=== PATIENT | male | born 1965 | race Caucasian/White ===

== ENCOUNTER 2017-02-14 06:43 | Day surgery (SDC) | payer MEDICAID, OTHER ==
[2017-02-14 07:44] VITALS: TEMP 97.5
--- NOTE | 2017-02-14 08:00 | PDANEPAE ---
ANE History of Present Illness Heartburn ANE Past Medical History - Cardiovascular History Hx Hypertension: No Hx Arrhythmias: No Hx Chest Pain: No Hx Coronary Artery / Peripheral Vascular Disease: No Hx CHF / Valvular Disease: No Hx Palpitations: No - Pulmonary History Hx COPD: No Hx Asthma/Reactive Airway Disease: No Hx Recent Upper Respiratory Infection: No Hx Oxygen in Use at Home: No Hx Sleep Apnea: No Sleep Apnea Screening Result - Last Documented: Negative Pulmonary History Comment: smoked cigs 35 yrs- trying to quit. Smokes 1 cig daily. - Neurologic History Hx Cerebrovascular Accident: No Hx Seizures: No Hx Dementia: No - Endocrine History Hx Diabetes: No - Renal History Hx Renal Disorders: No Renal History Comment: urgency - Liver History Hx Hepatic Disorders: No - Neurological & Psychiatric Hx Hx Neurological and Psychiatric Disorders: No Neurological / Psychiatric History Comment: occ back and neck pain - Cancer History Hx Cancer: No - Congenital Disorder History Hx Congenital Disorders: No - GI History Hx Gastrointestinal Disorders: Yes Gastrointestinal History Comment: nausea, GERD - Other Health History Other Health History: skin: states " 1 inch lesion back of L leg" - Chronic Pain History Chronic Pain: No - Surgical History Prior Surgeries: tonsillectomy-child ANE Review of Systems Review of Systems: - Exercise capacity METS (RN): 5 METS ANE Patient History - Allergies Allergies/Adverse Reactions: No Known Allergies Allergy (Unverified 02/01/17 16:18) - Home Medications Home Medications: Lunesta 02/01/17 [Last Taken Unknown] Wellbutrin Sr 02/01/17 [Last Taken Unknown] Zoloft 50mg (*) 02/01/17 [Last Taken Unknown] - NPO status NPO Since - Liquids (Date): 02/13/17 NPO Since - Solids (Date): 02/13/17 - Smoking Hx Smoking Status: Light smoker ANE Labs/Vital Signs - Vital Signs Blood Pressure: 115/77 Heart Rate: 65 Respiratory Rate: 16 O2 Sat (%): 94 Height: 167.64 cm Weight: 77.111 kg ANE Physical Exam - Airway Neck exam: FROM Mallampati Score: Class 1 - Pulmonary Pulmonary: no respiratory distress - Cardiovascular Cardiovascular: regular rate and rhythym - ASA Status ASA Status: II ANE Anesthesia Plan Anesthesia Plan: MAC Total IV Anesthesia: Yes
--- NOTE | 2017-02-14 08:01 | PDGENHP ---
History & Physical Chief Complaint: cc screen, abdo pain History of Present Illness: cc screen. intermittant abdo pain Pertinent Past, Social, Family History: no cc. hx smoking quit x years Relevant Physical Exam: A+Ox3. CTA. S1S2, RRR. +BS , soft, nt Cardiorespiratory Assessment: class 2
[2017-02-14] MEDS ORDERED: PROPOFOL 200 MG/20 ML VIAL ONE ×3 (08:05→08:33)
[2017-02-14] MEDS ORDERED: LIDOCAINE 2% 5 ML SDV ONE (08:05)
[2017-02-14] MEDS ORDERED: NALOXONE HCL 0.4 MG/ML INJ IVP PRN (08:09)
--- NOTE | 2017-02-14 08:22 | GIREPORT ---
[facility] Surgical Services - Endoscopy Department Patient Name: Michelet Savage Procedure Date: 02/14/2017 7:57 AM Patient Type: Outpatient Attending MD/ ER Physician: Carlos Manuel Weinberg Procedure: Upper GI endoscopy Indications: Abdominal pain Providers: Junior Thompson MD Referring MD: Charlette Hardy [facility] Medicines: Sedation Required Anesthesia Staff Assistance Complications: No immediate complications. Estimated blood loss: Minimal. Description of Procedure: After obtaining informed consent, the endoscope was passed under direct vision. Throughout the procedure, the patient's blood pressure, pulse, and oxygen saturations were monitored continuously. The Endoscope was intro duced through the mouth, and advanced to the third part of duodenum. The uppe r GI endoscopy was accomplished without difficulty. The patient tolerated th e procedure well. Findings: The examined esophagus was normal. Scattered mild inflammation characterized by erythema, friability and granularity was found on the greater curvature of the gastric body and in the gastric antrum. Biopsies were taken with a cold forceps for histolo gy. Estimated blood loss was minimal. The examined duodenum was normal. The exam was otherwise without abnormality. Estimated Blood Loss: Estimated blood loss was minimal. Post Op Diagnosis: - Normal esophagus. - Gastritis. Biopsied. - Normal examined duodenum. - The examination was otherwise normal. Recommendation: - Await pathology results. - My office will call with the pathology result with 5-7 days. If you h ave not heard from my office by 12-14, do not assume the pathology is rohit l, please call [phone] to get the pathology reults. - Use Protonix (pantoprazole) 40 mg PO daily for 4 weeks. Take 30-60 mi nutes before breakfast - Perform a colonoscopy today. - Return to primary care physician as previously scheduled. - Thank you for allowing me to help in your patient's care. Do not hesi beverly to call with any questions. Attending Participation: I personally performed the entire procedure. Jay Pacheco M.D Junior Thompson MD 02/14/2017 8:21:37 AM This report has been signed electronicallyMathew MD Jay Number of Addenda: 0 Note Initiated On: 02/14/2017 7:57 AM [email or web address]
[2017-02-14] MEDS ORDERED: ONDANSETRON 4 MG/2 ML VIAL IVP PRN (08:29)
[2017-02-14] MEDS ORDERED: fentaNYL 100 MCG/2 ML INJ IVP PRN (08:29)
--- NOTE | 2017-02-14 08:40 | GIREPORT ---
[facility] Surgical Services - Endoscopy Department Patient Name: Michelet Savage Procedure Date: 02/14/2017 8:18 AM Patient Type: Outpatient Attending MD/ ER Physician: Carlos Manuel Weinberg Procedure: Colonoscopy Indications: Screening for colorectal malignant neoplasm Providers: Junior Thompson MD Referring MD: Charlette FARRELL, [facility] Medicines: Sedation Administered by an Anesthesia Professional Complications: No immediate complications. Description of Procedure: After obtaining informed consent, the scope was passed under direct vis ion. Throughout the procedure, the patient's blood pressure, pulse, and oxyg en saturations were monitored continuously. The Colonoscope with irrigatio n channel was introduced through the anus and advanced to the terminal il eum, with identification of the appendiceal orifice and IC valve. The colono scopy was performed without difficulty. The patient tolerated the procedure w ell. The quality of the bowel preparation was good. Findings: The digital rectal exam was normal. The terminal ileum appeared normal. The entire examined colon appeared normal on direct and retroflexion vi ews. Estimated Blood Loss: Estimated blood loss: none. Post Op Diagnosis: - The examined portion of the ileum was normal. - The entire examined colon is normal on direct and retroflexion views. - No specimens collected. Recommendation: - Repeat colonoscopy in 10 years for screening purposes. - Resume previous diet. - Patient has a contact number available for emergencies. The signs and symptoms of potential delayed complications were discussed with the pat ient. Return to normal activities tomorrow. Written discharge instructions we re provided to the patient. - Continue present medications. - Discharge patient to home (ambulatory). - Return to primary care physician as previously scheduled. - See EGD for other recommendations - Thank you for allowing me to help in your patient's care. Do not hesi beverly to call with any questions. Attending Participation: I personally performed the entire procedure. Jay Pacheco M.D Junior Thompson MD 02/14/2017 8:40:24 AM This report has been signed electronicallyMathew MD Jay Number of Addenda: 0 Note Initiated On: 02/14/2017 8:18 AM Total Procedure Duration Time 0 hours 12 minutes 30 seconds [email or web address]}
--- NOTE | 2017-02-14 08:49 | POSTANESTH ---
Post Anesthetic Evaluation Cardiovascular Status: Normal, Stable Respiratory Status: Normal, Stable Level of Consciousness/Mental Status: Alert and Oriented, Mildly Sleepy, Arousable Pain Control: Adequate, Prn Tx Ordered Nausea/Vomiting Control: Adequate, Prn Tx Ordered Complications Possibly Related to Anesthesia: None Noted
--- NOTE | 2017-02-14 09:05 | POSTOPPROG ---
Post Op Note Date of Operation: 02/14/17 Surgeon: Boston Thompson Anesthesiologist: Sheyla Anesthesia: Other (Specify) (iv general) Pre-op Diagnosis: abdo pain, colon cancer Post-op Diagnosis: gastritis, nml colon Indication: abdo pain, cc screen Procedure: egd and bx, colonoscopy Findings: gastritis, o/w nml Inf/Abcess present in the surg proc area at time of surgery?: No EBL: Minimal (few ml) Total fluids administered: 300ml LR Complications: none immediate
[2017-02-14 09:43] VITALS: PULSE 59; RESP 14; O2SAT 95
[2017-02-14 10:24] VITALS: BP 109/75
== END 2017-02-14 10:31 | disposition home or self-care (01) ==
LOC: FSGY 06:43
PROVIDERS: ATTEND Internal Medicine Gastroenterology
DX: Z12.11 Encounter for screening for malignant neoplasm of colon (principal); R11.0 Nausea; K21.9 Gastro-esophageal reflux disease without esophagitis; K29.60 Other gastritis without bleeding; B96.81 Helicobacter pylori [H. pylori] as the cause of diseases classified elsewhere
CPT/HCPCS: J2704

== ENCOUNTER 2017-10-14 14:50 | Emergency (ER) | payer MEDICAID ==
[2017-10-14] MEDS ORDERED: TDAP ADULT 0.5 ML INJ (BOOSTRIX) IM ONE (15:23)
--- NOTE | 2017-10-14 15:23 | EDPHY ---
General - History Smoking Status: Current every day smoker Time Seen by Provider: 10/14/17 15:16 Narrative: CHIEF COMPLAINT: "I shot up some meth" and arm pain HISTORY OF PRESENT ILLNESS: Patient complains of right arm pain of 1 week after "I shot up some meth and coke." He reports the attempted intravenous injection 1 week ago. He says that failed and was injected into the skin. No complaints until 2-3 days after this. He then developed some redness and pain. It is in the right anterior arm , distal portion of the brachium just above the AC. He has increasing pain, redness and questionable fever at this time. No difficulty bending the elbow but it is very painful the anterior portion when doing so. No numbness or tingling. No weakness. No other associated complaints or modifying factors. Questionable tetanus status REVIEW OF SYSTEMS: 10 systems were reviewed and negative with the exception of the elements mentioned in the history of present illness. PCP: [facility] SPECIALISTS: None PAST MEDICAL HISTORY: Denies any medical diagnoses PAST SURGICAL HISTORY: No recent surgical history SOCIAL HISTORY: Admits to tobacco use. Occasional illicit substance use. FAMILY HISTORY: Noncontributory EXAMINATION: General Appearance: Alert, no distress Head: normocephalic, atraumatic Eyes: Pupils equal and round, no conjunctival pallor or injection Respiratory: No retractions or distress. Cardiovascular: Regular rate. Symmetric radial pulses 2+. Good signs of perfusion to the right upper extremity. Neurological: A&O, nonfocal. Light sensory symmetric in the upper extremities. No wrist drop. Excellent strength of the right interossei per Skin: Warm and dry. There is a 3 cm x 2.5 cm area of abscess on the anterior arm, just above the right AC. There is fluctuance superiorly. There is minimal surrounding cellulitis. Extremities: Moderate tenderness in the area of the right arm abscess. There is no tenderness of the posterior right elbow. Range of motion of the right upper extremity is symmetric to the left. Compartments are soft in the right upper extremity. There is no evidence of septic joint or intra-articular involvement of the right arm abscess. Psychiatric: Mood and affect normal DIFFERENTIAL DIAGNOSES: Including but not limited to abscess, cellulitis, septic joint MDM: 3:15 p.m. Abscess to the right arm that is superficial and just above the antecubital space. There is no evidence of septic joint. He has full range of motion of the elbow with no tenderness of the posterior aspect. His vital signs are within normal limits. He is neuro intact distally. I have anesthetize the area and proceed with incision and drainage. 3:50 p.m. Right arm abscess that was superficial has been incised and drained. This was tolerated well with excellent return. I did not place any packing. He remains neuro intact distal to the abscess status post drainage. A dressing has been placed. We discussed antibiotics, Bactrim and Keflex. We discussed returning here in 48 hr for wound check. We discussed returning sooner for any increasing pain or redness, warmth, fever, difficulty bending the elbow or intractable pain. He is comfortable this plan. Discharged home stable condition PROCEDURE: Incision and Drainage Consent: Verbal Location: Right anterior, inferior brachium Length: 2.5 x 3 cm Complexity: Complex Anesthesia: Local. 1% lidocaine with epinephrine, 10 mL Procedure description: After good anesthesia and time-out, the right arm AC was prepped with Betadine. He was draped in common sterile fashion. A 15. Blade was used to make a 1.5 cm laceration along lingers lines. This was blunt dissected down to the area of abscess. I was able to express 12 mL of purulent and serous fluid. Minimal blood loss. Tolerated well. Neuro intact distally. Expressed: No packing was placed 12 mL, purulent serous Wound care: Routine. Follow-up: 48 hr SUPERVISION: This patient was independently evaluated without direct involvement of or examination by the attending physician. CONSULTATION: None (Dariel Martell) Discussion: The patient was evaluated and managed by the Physician Vacuum Cleaner Repair Person. My co- signature indicates that I have reviewed this chart and I agree with the findings and plan of care as documented. I am the secondary supervising physician. (Mary Carver) - Objective Vital Signs: Initial Vital Signs Temperature (C) 36.7 C 10/14/17 14:54 Heart Rate 103 H 10/14/17 14:54 Respiratory Rate 16 10/14/17 14:54 Blood Pressure 126/81 H 10/14/17 14:54 O2 Sat (%) 96 10/14/17 14:54 O2 Delivery Mode Room Air Allergies/Adverse Reactions: No Known Allergies Allergy (Unverified 10/14/17 14:53) Home Medications: Medication Instructions Recorded Cephalexin [Keflex (*)] 500 mg PO QID #40 cap 10/14/17 Naproxen [Naprosyn] 500 mg PO BID #20 tablet 10/14/17 Sulfamethox/Tmp 800/160 mg 2 tab PO BID 10 Days tab 10/14/17 [Bactrim Ds] Medications Given: Discontinued Medications Diphtheria/Tetanus/Acell Pertussis (Boostrix) 0.5 ml IM .ONCE ONE Stop: 10/14/17 15:24 Last Admin: 10/14/17 15:34 Dose: 0.5 ml Oxycodone/Acetaminophen (Percocet 5/325) 1 tab PO EDNOW ONE Stop: 10/14/17 15:30 Last Admin: 10/14/17 15:34 Dose: 1 tab Departure - Departure Disposition: Home, Routine, Self-Care Clinical Impression: Abscess of arm, right Condition: Good Instructions: Abscess (ED) Additional Instructions: 1. Antibiotics as prescribed to completion 2. Return here in 48 hr for wound check 3. Return here sooner for any worsening pain, increasing redness, difficulty bending the elbow, fever, complaints distal to the abscess Referrals: Physician,Emergency Dept, [Medical Doctor] - As per Instructions [facility],. [Clinic] - As per Instructions Prescriptions: Cephalexin [Keflex (*)] 500 mg PO QID #40 cap Naproxen [Naprosyn] 500 mg PO BID #20 tablet Sulfamethox/Tmp 800/160 mg [Bactrim Ds] 2 tab PO BID 10 Days tab
[2017-10-14] MEDS ORDERED: OXYCODONE/APAP 5/325 TAB PO ONE (15:29)
[2017-10-14 16:13] VITALS: BP 120/78
== END 2017-10-14 16:21 | disposition home or self-care (01) ==
PROC: 0H9BXZZ Drainage of Right Upper Arm Skin, External Approach (ICD-10-PCS; principal; 2017-10-14)
DX: L02.413 Cutaneous abscess of right upper limb (principal); F17.210 Nicotine dependence, cigarettes, uncomplicated; F14.90 Cocaine use, unspecified, uncomplicated; F15.90 Other stimulant use, unspecified, uncomplicated; Z23 Encounter for immunization

== ENCOUNTER 2018-02-27 14:08 | Emergency (ER) | payer MEDICAID ==
--- NOTE | 2018-02-27 15:10 | EDPHY ---
HPI/HX/ROS/PE/MDM Narrative: CHIEF COMPLAINT: Cough HISTORY OF PRESENT ILLNESS: This patient is a homeless 52 year old male complaining that he has been "coughing up green sludge for weeks". He states this began like his typical sinus infections and endorses facial pain. Now, he has a persistent productive cough. He endorses discomfort between his shoulder blades. He complains of subjective fever and nausea today only. He endorses shortness of breath. The patient admits to frequent cigarette use and methamphetamine use. He states he used heroin for the first time last night to help him sleep. He states that the woman who provided the heroin also provided an albuterol inhaler to help his cough, but he continues to feel poorly. No chills, chest pain, palpitations, vomiting, diarrhea, urinary complaints, headache, lightheadedness. REVIEW OF SYSTEMS: A comprehensive 10 system review of systems is otherwise negative aside from elements mentioned in the history of present illness and medical decision making. PAST MEDICAL HISTORY: Depression, bipolar. SOCIAL HISTORY: Patient is currently homeless. Endorses frequent tobacco and methamphetamine use. Occasional alcohol use. PCP Charlette Hardy VITAL SIGNS: Reviewed by me. Afebrile. Sats 92% GENERAL: Well-developed, well-nourished, resting comfortably, sounds congested. Pleaseant, occasional cough. HEENT: Atraumatic. Eyes: No icterus, no injection. TTP across maxillary and frontal sinus. Mouth: moist mucous membranes. No erythema or lesions. Neck: supple with no adenopathy. LUNGS: Rhonchi in posterior right upper lobe. Wheezy cough. CARDIAC: Mild tachycardia rate and rhythm, no rubs, murmurs or gallops. ABDOMEN: Soft, nontender, nondistended, bowel sounds normal. BACK: No CVA tenderness. EXTREMITIES: No trauma. No edema. Range of motion is normal throughout. NEURO: Alert and oriented, grossly nonfocal. SKIN: Warm and dry, no rash. PSYCHIATRIC: Normal mentation, no agitation. Portions of this note were transcribed by a caregivers non medical. I personally performed a history, physical exam, medical decision making, and confirmed accuracy of information the transcribed note. ED Course: 52 year old male presents with persistent productive cough. On auscultation, the patient has rhonchi in posterior right upper lobe. Wheezy cough. Plan for chest x-ray, EKG. Plan to administer DuoNeb for symptom relief. Evidence of bilateral lower lobe pneumonia. Plan to administer 100mg PO Doxycycline. Plan to discharge in good condition with prescription for doxycycline for his sinus infection and pneumonia. Albuterol MDI prepack provided as well. He will follow up with his primary care provider. Follow up and return precautions discussed. He is comfortable with this plan. MDM: Differential diagnosis for the patient's cough was considered including but not limited to viral versus bacterial bronchitis, asthma, COPD, pulmonary emboli, upper respiratory infection, lower respiratory infection, and bronchospasm. - Data Points Imaging Results: Impression: 1. Bilateral lower lobe pneumonia. 2. Recommend follow-up until clear. Findings and recommendations discussed with Emergency Department physician, Mary Carver MD at 16:18 hour, 02/27/2018. Final report concurs with initial preliminary interpretation. Dictated By: Navin Rincon Imaging: I viewed and interpreted images myself Medications Given: Discontinued Medications Albuterol (Proventil Neb) 3 ml IH EDNOW ONE Stop: 02/27/18 15:28 Last Admin: 02/27/18 15:32 Dose: 3 ml Albuterol Sulfate (Proventil Inh Prepack) 1 mdi TAKEHOME EDNOW ONE Stop: 02/27/18 15:40 Last Admin: 02/27/18 15:43 Dose: 1 mdi Doxycycline Hyclate (Doxycycline Hyclate) 100 mg PO EDNOW ONE PRN Reason: Protocol Stop: 02/27/18 15:39 Last Admin: 02/27/18 15:43 Dose: 100 mg Doxycycline Hyclate (Vibramycin 100 Mg Prepack#2) 1 btl TAKEHOME EDNOW ONE Stop: 02/27/18 15:40 Last Admin: 02/27/18 15:44 Dose: 1 btl General Time Seen by Provider: 02/27/18 14:55 Initial Vital Signs: Initial Vital Signs Temperature (C) 36.7 C 02/27/18 14:11 Heart Rate 105 H 02/27/18 14:11 Respiratory Rate 16 02/27/18 14:11 Blood Pressure 99/59 L 02/27/18 14:11 O2 Sat (%) 92 02/27/18 14:11 O2 Delivery Mode Room Air Allergies/Adverse Reactions: No Known Allergies Allergy (Unverified 02/27/18 14:11) Home Medications: Medication Instructions Recorded Cephalexin [Keflex (*)] 500 mg PO QID #40 cap 10/14/17 Naproxen [Naprosyn] 500 mg PO BID #20 tablet 10/14/17 Sulfamethox/Tmp 800/160 mg 2 tab PO BID 10 Days tab 10/14/17 [Bactrim Ds] Doxycycline Hyclate 100 mg PO BID 10 Days #20 capsule 02/27/18 Departure - Departure Disposition: Home, Routine, Self-Care Clinical Impression: Acute bronchitis Qualifiers: Bronchitis organism: other organism Qualified Code(s): J20.8 - Acute bronchitis due to other specified organisms Acute sinusitis Qualifiers: Sinusitis location: unspecified location Recurrence: not specified as recurrent Qualified Code(s): J01.90 - Acute sinusitis, unspecified Pneumonia Qualifiers: Pneumonia type: due to unspecified organism Laterality: bilateral Lung location : lower lobe of lung Qualified Code(s): J18.1 - Lobar pneumonia, unspecified organism Condition: Good Instructions: Sinusitis (ED), Acute Bronchitis (ED), Bronchospasm (ED) Additional Instructions: Please take antibiotic as directed. It will help with both your sinus infection as well as your lungs. Please use the albuterol meter dose inhaler as instructed. 2-4 puffs every 4-6 hours as needed for shortness of breath and cough. You need to obtain an [id number] decongestant to help with your sinus infection. You should also obtain Flonase nasal spray, which also is available over-the- counter. Please use this as directed. Drink plenty of fluids and get plenty of rest. Referrals: Charlette Hardy, PAC [Primary Care Provider] - As per Instructions Prescriptions: Doxycycline Hyclate 100 mg PO BID 10 Days #20 capsule Report Scribed for: Mary Carver Report Scribed by: Dorene Joshi Date of Report: 02/27/18 Time of Report: 15:51
[2018-02-27] MEDS ORDERED: ALBUTEROL 3 ML DEYVIAL IH ONE (15:27)
[2018-02-27] MEDS ORDERED: DOXYCYCLINE HYCLATE 100 MG CAP/TAB PO ONE (15:38)
[2018-02-27] MEDS ORDERED: ALBUTEROL INH PREPACK MDI TAKEHOME ONE (15:39)
[2018-02-27] MEDS ORDERED: DOXYCYCLINE 100 MG PREPACK#2 BTL TAKEHOME ONE (15:39)
[2018-02-27 16:23] VITALS: BP 108/67
--- NOTE | 2018-02-27 19:31 | ASMTCMCOM ---
CM Note CM Note Notes: Pt presented to the ED for a cough. CM requested to speak to patient and his two friends re:pt's homelessness situation and options for senior care tonight. Spoke w/pt and his friends at bedside. Pt very restless & hyperverbal but pleasant. Pt's friends were very pleasant and wanting to help the pt if possible. Pt states he has been staying at the [facility] ever since he missed an appointment w/his Forge Shop Supervisor at [facility]. CM let the pt know that [facility] was open tonight and that would be his only option for senior care tonight. Pt discharged to the [facility] w/instructions to followup with [facility] (pt states "I go there all the time") and to followup w/his CM at [facility]. Pt agreeable. Friends appreciative and understanding of limited options for pt and that he needs to follow up w/CM and their process. CM available for further assistance if needed. Date Signed: 02/27/2018 07:30 PM Electronically Signed By:Doris Oconnor RN
--- NOTE | 2018-02-27 20:47 | CPEKG ---
Test Reason : OPEN Blood Pressure : / mmHG Vent. Rate : 098 BPM Atrial Rate : 099 BPM P-R Int : 163 ms QRS Dur : 100 ms QT Int : 360 ms P-R-T Axes : 073 039 056 degrees QTc Int : 460 ms Sinus rhythm Confirmed by Mary Carver ([id number]) on 02/27/2018 8:46:54 PM Referred By: Confirmed By:Mary Carver
== END 2018-02-27 16:22 | disposition home or self-care (01) ==
DX: J18.1 Lobar pneumonia, unspecified organism (principal); J20.9 Acute bronchitis, unspecified; J01.90 Acute sinusitis, unspecified; F32.9 Major depressive disorder, single episode, unspecified; Z59.0 Homelessness
CPT/HCPCS: J7613

== ENCOUNTER 2018-06-21 22:45 | Emergency (ER) | payer MEDICAID ==
[2018-06-21 22:51] VITALS: BP 150/96
--- NOTE | 2018-06-21 22:58 | EDPHY ---
H & P Stated Complaint: right side lower molar Time Seen by Provider: 06/21/18 22:53 HPI/ROS: HPI: This is a 52-year-old male who presents with Chief Complaint: Right-sided lower molar pain Location: Right-sided lower molar Quality: Pain Duration: 1 month Signs and Symptoms: no fever, no nausea, no vomiting, no photophobia, no noise sensitivity, no neck stiffness, no ear pain, no tinnitus, no nasal congestion, no sinus pressure, no weakness, no radiation, no aura, no difficulty swallowing , no difficulty talking Timing: Worse over the last 2 days Severity: 10/17 Context: Patient has a history of depression, bipolar disorder, tobacco use presents with complaints of right sided lower molar pain over the last 1 month. He reports that he has not followed up with his dentist as "I should." Eating the orange jelly candy "makes it feel better." Denies any fever, difficulty swallowing, difficulty talking. Modifying Factors: None Comment: ROS: A comprehensive 10 system review of systems is otherwise negative aside from elements mentioned in the history of present illness. MEDICAL/SURGICAL/SOCIAL HISTORY: Medical history: Depression, bipolar disorder Surgical history: Denies Social history: Homeless. Current every day smoker. Family history noncontributory. CONSTITUTIONAL: Well-developed, well-nourished adult white male, awake and alert, no obvious distress HEENT: Atraumatic and normocephalic, PERRL, EOMI. Nares patent; no rhinorrhea; no nasal mucosal edema. Tympanic membranes clear. Oropharynx clear, molar number 47 is cracked with black and color but no gingival erythema, no gingival swelling, no facial swelling. No malocclusion. no exudate and moist pink mucosa. Airway patent. No lymphadenopathy. No meningismus. Cardiovascular: Normal S1/S2, regular rate, regular rhythm, without murmur rub or gallop. PULMONARY/CHEST: Symmetrical and nontender. Clear to auscultation bilaterally. Good air movement. No accessory muscle usage. ABDOMEN: Soft, nondistended, nontender, no rebound, no guarding, no peritoneal signs, no masses or organomegaly. No CVAT. EXTREMITIES: 2/2 pulses, strength 5/5, no deformities, no clubbing, no cyanosis or edema. NEUROLOGICAL: no focal neuro deficits. GCS 15. Speech fluent. SKIN: Warm and dry, no erythema. no rash. Good capillary refill. Source: Patient Exam Limitations: No limitations - Personal History Current Tetanus Diphtheria and Acellular Pertussis (TDAP): Yes - Medical/Surgical History Hx Asthma: No Hx Chronic Respiratory Disease: No Hx Diabetes: No Hx Cardiac Disease: No Hx Renal Disease: No Hx Cirrhosis: No Hx Alcoholism: Yes Hx HIV/AIDS: No Hx Splenectomy or Spleen Trauma: No Other PMH: depression, bipolar - Social History Smoking Status: Current every day smoker Constitutional: Initial Vital Signs Temperature (C) 36.5 C 06/21/18 22:46 Heart Rate 90 06/21/18 22:46 Respiratory Rate 16 06/21/18 22:46 Blood Pressure 150/96 H 06/21/18 22:46 O2 Sat (%) 97 06/21/18 22:46 O2 Delivery Mode Room Air Allergies/Adverse Reactions: No Known Allergies Allergy (Unverified 02/27/18 14:11) Home Medications: Medication Instructions Recorded Amoxicillin Trihydrate [Amoxil] 500 mg PO TID 7 Days cap 06/21/18 Medical Decision Making Procedures: Procedure: Dental block. After verbal informed consent was obtained explaining the risks including but not limited to infection and bleeding, a dental block was performed on the tooth #47. The patient was prepped and draped in the usual sterile fashion. The joint was anesthetized with 3 mL 1% lidocaine without epinephrine at the buccal mucosa. Patient reports complete pain relief. There were no complications. The procedure was performed by myself. ED Course/Re-evaluation: Local dental block performed with complete relief of pain. Given amoxicillin prepack and prescription for same. Dental aide number given for follow-up. No signs of facial cellulitis, periapical abscess. This patient was seen under the supervision of my secondary supervising physician. I evaluated and cared for this patient with attending. Differential Diagnosis: Differential diagnosis includes but is not limited to dental cavity, cracked tooth, root injury, abscess. - Data Points Medications Given: Discontinued Medications Amoxicillin (Amoxil Chewable 250 Mg Prepack#4) 1 btl TAKEHOME EDNOW ONE PRN Reason: Protocol Stop: 06/21/18 23:00 Last Admin: 06/21/18 23:08 Dose: 1 btl Amoxicillin (Amoxil Chewable 250 Mg Prepack#4) 1 btl TAKEHOME EDNOW ONE PRN Reason: Protocol Stop: 06/21/18 23:00 Last Admin: 06/21/18 23:01 Dose: Not Given Departure - Departure Disposition: Home, Routine, Self-Care Clinical Impression: Dental cavity, Odontalgia Condition: Good Instructions: Amoxicillin (By mouth), Cavity Preventive (For the teeth or gums) , Toothache (ED) Additional Instructions: Follow up with a dentist in the next week. Eat a soft diet until pain free. Swish and spit after every meal and at bedtime with dilute hydrogen peroxide; 50 /50 mixture of warm water and Hydrogen peroxide x 5 days. Take Tylenol 650 mg every 4 hr and/or ibuprofen 600 mg every 8 hr as needed for pain. Take antibiotic as directed. Do not skip a dose. Follow-Up: Please follow-up as noted above. Follow-up sooner if your condition worsens or if you develop any new problems. Call as soon as possible for an appointment. Be clear when you call for an appointment that this is an Emergency Department follow-up. Contact the Emergency Department if you have trouble arranging follow-up care. Our referrals are not based on your insurance network. When time allows, contact your insurance carrier to verify the referral physician is in your plan. If not, get a referral for an in-network systems operator. Referrals: Dental Aid [Outside] - As per Instructions Prescriptions: Amoxicillin Trihydrate [Amoxil] 500 mg PO TID 7 Days cap
[2018-06-21] MEDS ORDERED: AMOXICILLIN 250 MG PREPACK#4 BTL TAKEHOME ONE ×2 (22:59)
== END 2018-06-21 23:09 | disposition home or self-care (01) ==
PROC: 3E0X3BZ Introduction of Anesthetic Agent into Cranial Nerves, Percutaneous Approach (ICD-10-PCS; principal; 2018-06-21)
DX: K02.9 Dental caries, unspecified (principal); K08.89 Other specified disorders of teeth and supporting structures; F32.9 Major depressive disorder, single episode, unspecified; F17.200 Nicotine dependence, unspecified, uncomplicated

== ENCOUNTER 2018-06-22 04:21 | Emergency (ER) | payer MEDICAID ==
[2018-06-22 04:27] VITALS: BP 140/95
--- NOTE | 2018-06-22 04:40 | EDPHY ---
H & P Stated Complaint: dental pain Time Seen by Provider: 06/22/18 04:37 HPI/ROS: Chief Complaint: Dental pain HPI: 52-year-old male presenting with 2 days of worsening right lower molar dental pain. He was seen here fiber 6 hr ago and had a dental block with good relief but it has worn off. He was given antibiotics. Does have a history of methamphetamine abuse. No fevers or chills. No nausea or vomiting. Mild headache. ROS: 10 systems were reviewed and were negative except those elements noted in the HPI. PMH: Denies Social History: Positive smoking, no alcohol, positive methamphetamine use Family History: non-contributory Physical Exam: General: Awake, alert, no acute distress Mouth: Patient has very poor dentition. Right lower molar is broken and has significant decay. There is no erythema. There is no fluctuance. There is no pointing. No submandibular swelling Neck: No lymphadenopathy - Personal History Current Tetanus/Diphtheria Vaccine: Yes Current Tetanus Diphtheria and Acellular Pertussis (TDAP): Yes - Medical/Surgical History Hx Asthma: No Hx Chronic Respiratory Disease: No Hx Diabetes: No Hx Cardiac Disease: No Hx Renal Disease: No Hx Cirrhosis: No Hx Alcoholism: Yes Hx HIV/AIDS: No Hx Splenectomy or Spleen Trauma: No Other PMH: depression, bipolar - Social History Smoking Status: Current every day smoker Constitutional: Initial Vital Signs Temperature (C) 36.5 C 06/22/18 04:23 Heart Rate 82 06/22/18 04:23 Respiratory Rate 19 06/22/18 04:23 Blood Pressure 140/95 H 06/22/18 04:23 O2 Sat (%) 97 06/22/18 04:23 O2 Delivery Mode Room Air Allergies/Adverse Reactions: No Known Allergies Allergy (Unverified 02/27/18 14:11) Home Medications: Medication Instructions Recorded Amoxicillin Trihydrate [Amoxil] 500 mg PO TID 7 Days cap 06/21/18 Medical Decision Making Procedures: Procedure: Regional anesthesia. A right inferior alveolar dental block was performed for tooth pain. The block was performed with Marcaine with epinephrine. The patient experienced complete pain relief. The procedure was performed by myself. ED Course/Re-evaluation: 52-year-old presenting with dental pain. I have performed an inferior alveolar block with bupivacaine with epinephrine. Patient will follow up with dental aid later today. Departure - Departure Disposition: Home, Routine, Self-Care Clinical Impression: Tooth pain Condition: Good Instructions: Toothache (ED) Additional Instructions: Follow up with dental aid today. Referrals: Dental Aid [Outside] - As per Instructions
[2018-06-22] MEDS ORDERED: OXYCODONE/APAP 5/325 TAB PO ONE (04:41)
== END 2018-06-22 04:58 | disposition home or self-care (01) ==
PROC: 3E0X3BZ Introduction of Anesthetic Agent into Cranial Nerves, Percutaneous Approach (ICD-10-PCS; principal; 2018-06-22)
DX: K08.89 Other specified disorders of teeth and supporting structures (principal)

== ENCOUNTER 2018-07-24 14:50 | Emergency (ER) | payer MEDICAID | END 2018-07-24 16:11 | disposition home or self-care (01) ==